=== PATIENT | female | born 1980 | race Caucasian/White ===

== ENCOUNTER 2018-01-10 09:58 | Day surgery (SDC) | payer MEDICAID ==
[2018-01-10] MEDS ORDERED: FENTAnyl 50 MCG/ML VIAL ×2 (12:48→13:57)
[2018-01-10] MEDS ORDERED: MIDAZOLAM 1 MG/ML 2 ML INJ (12:48)
[2018-01-10] MEDS ORDERED: OXYTOCIN 10 UNIT INJ (13:03)
[2018-01-10] MEDS ORDERED: PROPOFOL 20 ML (13:22)
[2018-01-10] MEDS ORDERED: ONDANSETRON 4 MG INJ (13:22)
[2018-01-10] MEDS ORDERED: CEFAZOLIN 1 GM INJ (13:22)
[2018-01-10] MEDS ORDERED: LIDOCAINE 2% (SDV) 5 ML INJ (13:22)
[2018-01-10] MEDS: FENTAnyl 50 MCG/ML VIAL IV (14:02)
[2018-01-10] MEDS: KETOROLAC 30 MG INJ IV (14:11)
[2018-01-10] MEDS: IBUPROFEN 600 MG TAB PO (15:53)
== END 2018-01-10 16:12 | disposition home or self-care (01) ==
LOC: SDS 09:58
DX: O03.1 Delayed or excessive hemorrhage following incomplete spontaneous abortion (principal); E78.5 Hyperlipidemia, unspecified; E11.9 Type 2 diabetes mellitus without complications; E66.01 Morbid (severe) obesity due to excess calories
CPT/HCPCS: 59812; 82962; 86850; 86900; 86901; 88305

== ENCOUNTER 2018-09-22 11:01 | Inpatient (IN) | payer MEDICAID ==
[2018-09-22] MEDS: ACCU-CHEK XX ×2 (13:30→20:39)
[2018-09-22 15:52] LABS: ADD MAN DIFF? NO
[2018-09-22 15:54] LABS: BASOPHILS % 0.4 % (0.0-2.0); EOSINOPHILS % 0.4 % (0.0-7.0); HEMOGLOBIN 9.9 g/dl (12.0-16.0); LYMPHOCYTES # 1.8 10^3/ul (0.8-2.9); LYMPHOCYTES % 21.3 % (15.0-51.0); MEAN CORPUSCULAR HEMOGLOBIN 24.1 pg (29.0-33.0); MEAN CORPUSCULAR HGB CONC 31.9 g/dl (32.0-37.0); MEAN CORPUSCULAR VOLUME 75.4 fl (82.0-101.0); MEAN PLATELET VOLUME 10.2 fl (7.4-10.4); MONOCYTE # 0.5 10^3/ul (0.3-0.9); MONOCYTES % 5.4 % (0.0-11.0); NEUTROPHIL # 6.1 10^3/ul (1.6-7.5); NEUTROPHILS % 72.1 % (39.0-77.0); PLATELET COUNT 352 10^3/UL (140-415); RED BLOOD COUNT 4.11 10^6/ul (4.20-5.40)
[2018-09-22 15:54] LABS: WHITE BLOOD COUNT 8.5 10^3/ul (4.8-10.8)
[2018-09-22 16:12] LABS: ALANINE AMINOTRANSFERASE 23 IU/L (13-69); ALBUMIN 3.6 g/dl (3.3-4.9); ALBUMIN/GLOBULIN RATIO 1.12; ALKALINE PHOSPHATASE 142 IU/L (42-121); ANION GAP 13 (5-13); ASPARTATE AMINO TRANSFERASE 33 IU/L (15-46); BILIRUBIN,INDIRECT 0.6 mg/dl (0-1.1); BILIRUBIN,TOTAL 0.6 mg/dl (0.2-1.3); BLOOD UREA NITROGEN 9 mg/dl (7-20); CALCIUM 9.2 mg/dl (8.4-10.2); CARBON DIOXIDE 21 mmol/L (21-31); CHLORIDE 101 mmol/L (97-110); CREATININE 0.61 mg/dl (0.44-1.00); Estimated GFR > 60 mL/min (>60); GLUCOSE 159 mg/dl (70-220); SODIUM 135 mmol/L (135-144); TOTAL PROTEIN 6.8 g/dl (6.1-8.1)
[2018-09-22 16:14] LABS: HEMOGLOBIN A1C 6.2 % (0-5.9)
[2018-09-22 16:39] LABS: ADD UMIC NO; UR ASCORBIC ACID NEGATIVE (NEGATIVE); UR BILIRUBIN (Dip) NEGATIVE (NEGATIVE); UR BLOOD (Dip) NEGATIVE (NEGATIVE); UR CLARITY CLEAR (CLEAR); UR COLOR YELLOW (YELLOW); UR GLUCOSE (Dip) 1+ mg/dL (NEGATIVE); UR KETONES (Dip) 2+ mg/dL (NEGATIVE); UR LEUKOCYTE ESTERASE (Dip) NEGATIVE Leu/ul (NEGATIVE); UR NITRITE (Dip) NEGATIVE (NEGATIVE); UR SPECIFIC GRAVITY (Dip) 1.019 (1.003-1.030); UR TOTAL PROTEIN (Dip) NEGATIVE (NEGATIVE); UR UROBILINOGEN (Dip) 1+ mg/dL (NEGATIVE)
[2018-09-23] MEDS: ACCU-CHEK XX ×3 (10:48→10:55)
[2018-09-23] MEDS: PRENATAL VITAMIN PO (10:49)
== END 2018-09-23 18:45 | disposition home or self-care (01) | DRG 833 ==
LOC: OBT 11:01 → L-D 11:06 → OBT 13:03 → L-D 13:03 → PP1 15:05
PROVIDERS: Obstetrics & Gynecology
PROC: 4A1HXCZ Monitoring of Products of Conception, Cardiac Rate, External Approach (ICD-10-PCS; principal; 2018-09-22)
DX: O24.410 Gestational diabetes mellitus in pregnancy, diet controlled (principal); Z3A.34 34 weeks gestation of pregnancy
CPT/HCPCS: 76815; 76818; 80053; 81003; 82962; 83036; 85025; 93005

== ENCOUNTER 2018-10-05 04:10 | Inpatient (IN) | payer MEDICAID ==
[2018-10-05] MEDS ORDERED: BUTORPHANOL 1 MG INJ IV (06:00)
[2018-10-05] MEDS ORDERED: CARBOPROST 250 MCG INJ IM (06:00)
[2018-10-05] MEDS ORDERED: OXYTOCIN 30 UNITS/LR 500 ML IV ×2 (06:00)
[2018-10-05] MEDS ORDERED: MISOPROSTOL 200 MCG TAB PR (06:00)
[2018-10-05] MEDS ORDERED: LIDOCAINE 1% (MPF) 30 ML INJ INJ (06:00)
[2018-10-05] MEDS ORDERED: METHYLERGONOVINE 0.2 MG INJ IM (06:00)
[2018-10-05] MEDS: LACTATED RINGER'S 1,000 ML IV ×4 (07:00→21:41)
[2018-10-05] MEDS: AMPICILLIN 2 GM/NS (PMX) 100 ML IV (07:27)
[2018-10-05 07:48] LABS: ADD MAN DIFF? NO
[2018-10-05 07:51] LABS: WHITE BLOOD COUNT 8.9 10^3/ul (4.8-10.8)
[2018-10-05 07:51] LABS: BASOPHILS % 0.2 % (0.0-2.0); EOSINOPHILS % 0.3 % (0.0-7.0); HEMATOCRIT 33.3 % (37.0-47.0); HEMOGLOBIN 10.4 g/dl (12.0-16.0); LYMPHOCYTES # 1.8 10^3/ul (0.8-2.9); LYMPHOCYTES % 20.3 % (15.0-51.0); MEAN CORPUSCULAR HEMOGLOBIN 23.9 pg (29.0-33.0); MEAN CORPUSCULAR HGB CONC 31.2 g/dl (32.0-37.0); MEAN CORPUSCULAR VOLUME 76.6 fl (82.0-101.0); MEAN PLATELET VOLUME 10.7 fl (7.4-10.4); MONOCYTE # 0.5 10^3/ul (0.3-0.9); MONOCYTES % 5.6 % (0.0-11.0); NEUTROPHIL # 6.5 10^3/ul (1.6-7.5); NEUTROPHILS % 73.3 % (39.0-77.0); PLATELET COUNT 360 10^3/UL (140-415); RED BLOOD COUNT 4.35 10^6/ul (4.20-5.40); RED CELL DISTRIBUTION WIDTH 15.1 % (11.5-14.5)
[2018-10-05 08:11] LABS: INR 0.93; PARTIAL THROMBOPLASTIN TIME 29.7 Sec (23.0-35.0); PROTIME 12.6 Sec (11.9-14.9)
[2018-10-05 08:20] LABS: GLUCOSE 87 mg/dl (70-220)
[2018-10-05 08:49] LABS: HEPATITIS B SURFACE ANTIGEN NEGATIVE (NEGATIVE)
[2018-10-05 08:59] LABS: HIV 1&2 ANTIBODY NEGATIVE (NEGATIVE)
[2018-10-05 09:20] LABS: ALANINE AMINOTRANSFERASE 61 IU/L (13-69); ALBUMIN 3.9 g/dl (3.3-4.9); ALBUMIN/GLOBULIN RATIO 1.08; ALKALINE PHOSPHATASE 194 IU/L (42-121); ANION GAP 11 (5-13); ASPARTATE AMINO TRANSFERASE 57 IU/L (15-46); BILIRUBIN,INDIRECT 0.5 mg/dl (0-1.1); BILIRUBIN,TOTAL 0.5 mg/dl (0.2-1.3); BLOOD UREA NITROGEN 7 mg/dl (7-20); CALCIUM 9.5 mg/dl (8.4-10.2); CARBON DIOXIDE 20 mmol/L (21-31); CHLORIDE 107 mmol/L (97-110); Estimated GFR > 60 mL/min (>60); GLUCOSE 91 mg/dl (70-220); POTASSIUM 4.1 mmol/L (3.5-5.1); SODIUM 138 mmol/L (135-144); TOTAL PROTEIN 7.5 g/dl (6.1-8.1); URIC ACID 5.1 mg/dl (3.1-7.9)
[2018-10-05 10:01] LABS: ADD UMIC NO; UR ASCORBIC ACID NEGATIVE (NEGATIVE); UR BILIRUBIN (Dip) NEGATIVE (NEGATIVE); UR BLOOD (Dip) NEGATIVE (NEGATIVE); UR CLARITY CLEAR (CLEAR); UR COLOR YELLOW (YELLOW); UR GLUCOSE (Dip) NEGATIVE (NEGATIVE); UR KETONES (Dip) TRACE mg/dL (NEGATIVE); UR LEUKOCYTE ESTERASE (Dip) NEGATIVE Leu/ul (NEGATIVE); UR NITRITE (Dip) NEGATIVE (NEGATIVE); UR SPECIFIC GRAVITY (Dip) 1.017 (1.003-1.030); UR TOTAL PROTEIN (Dip) NEGATIVE (NEGATIVE); UR UROBILINOGEN (Dip) NEGATIVE (NEGATIVE)
[2018-10-05] MEDS: DEXTROSE 5%-LR 1,000 ML IV (10:36)
[2018-10-05] MEDS: OXYTOCIN 30 UNITS/LR 500 ML IV ×2 (10:36→22:16)
[2018-10-05] MEDS: AMPICILLIN 1 GM/NS (PMX) 50 ML IV ×4 (12:10→22:00)
[2018-10-05] MEDS: BUTORPHANOL 2 MG INJ IV (12:33)
[2018-10-05] MEDS ORDERED: KETOROLAC 30 MG INJ IV (17:00)
[2018-10-05] MEDS ORDERED: HYDROmorphONE 0.5 MG/0.5 ML SYG IV ×2 (17:00)
[2018-10-05] MEDS ORDERED: ONDANSETRON 4 MG INJ IV (17:00)
[2018-10-05] MEDS ORDERED: DIPHENHYDRAMINE 50 MG INJ IV (17:00)
[2018-10-05] MEDS ORDERED: FENTAnyl 2MCG/ML-ROPIV 0.2% 100 ML BAG EPI (17:00)
[2018-10-05] MEDS ORDERED: NALOXONE (0.4 MG/ML) INJ IV (17:00)
[2018-10-05] MEDS ORDERED: ZOLPIDEM 5 MG TAB PO (17:00)
[2018-10-05 20:21] LABS: AMPHETAMINE/METHAMPHETAMINE Negative (NEGATIVE); BENZODIAZEPINES Negative (NEGATIVE); CANNABINOIDS Negative (NEGATIVE); COCAINE Negative (NEGATIVE); OPIATES Negative (NEGATIVE)
[2018-10-05 20:27] LABS: BARBITURATES Negative (NEGATIVE)
[2018-10-05] MEDS: IBUPROFEN 600 MG TAB PO (21:57)
[2018-10-05 23:24] LABS: RAPID PLASMA REAGIN NONREACTIVE (NR)
[2018-10-06] MEDS ORDERED: METHYLERGONOVINE 0.2 MG INJ IM (00:30)
[2018-10-06] MEDS ORDERED: MISOPROSTOL 200 MCG TAB PR (00:30)
[2018-10-06] MEDS ORDERED: ZOLPIDEM 5 MG TAB PO (00:30)
[2018-10-06] MEDS ORDERED: OXYTOCIN 30 UNITS/LR 500 ML IV (00:30)
[2018-10-06] MEDS ORDERED: CARBOPROST 250 MCG INJ IM (00:30)
[2018-10-06] MEDS ORDERED: OXYCODONE/ASPIRIN (4.88/325) TAB PO ×2 (00:30)
[2018-10-06] MEDS: BENZOCAINE 20% 56 ML SPRAY TOP (02:39)
[2018-10-06] MEDS: LANOLIN HPA 1 PKT TOP (02:39)
[2018-10-06] MEDS: WITCH HAZEL/GLYCERIN PAD PR (02:39)
[2018-10-06 07:36] LABS: ADD MAN DIFF? NO
[2018-10-06 07:49] LABS: WHITE BLOOD COUNT 14.5 10^3/ul (4.8-10.8)
[2018-10-06 07:49] LABS: BASOPHILS % 0.1 % (0.0-2.0); HEMATOCRIT 28.4 % (37.0-47.0); LYMPHOCYTES # 1.8 10^3/ul (0.8-2.9); LYMPHOCYTES % 12.5 % (15.0-51.0); MEAN CORPUSCULAR HEMOGLOBIN 24.1 pg (29.0-33.0); MEAN CORPUSCULAR HGB CONC 31.7 g/dl (32.0-37.0); MEAN CORPUSCULAR VOLUME 76.1 fl (82.0-101.0); MONOCYTE # 0.9 10^3/ul (0.3-0.9); MONOCYTES % 6.4 % (0.0-11.0); NEUTROPHIL # 11.7 10^3/ul (1.6-7.5); NEUTROPHILS % 80.6 % (39.0-77.0); PLATELET COUNT 313 10^3/UL (140-415); RED BLOOD COUNT 3.73 10^6/ul (4.20-5.40); RED CELL DISTRIBUTION WIDTH 15.3 % (11.5-14.5)
[2018-10-06 08:02] LABS: ALANINE AMINOTRANSFERASE 53 IU/L (13-69); ALBUMIN 2.8 g/dl (3.3-4.9); ALBUMIN/GLOBULIN RATIO 0.93; ALKALINE PHOSPHATASE 128 IU/L (42-121); ANION GAP 5 (5-13); ASPARTATE AMINO TRANSFERASE 42 IU/L (15-46); BILIRUBIN,INDIRECT 0.7 mg/dl (0-1.1); BILIRUBIN,TOTAL 0.7 mg/dl (0.2-1.3); BLOOD UREA NITROGEN 9 mg/dl (7-20); CALCIUM 9.3 mg/dl (8.4-10.2); CARBON DIOXIDE 22 mmol/L (21-31); CHLORIDE 109 mmol/L (97-110); CREATININE 0.74 mg/dl (0.44-1.00); Estimated GFR > 60 mL/min (>60); GLUCOSE 123 mg/dl (70-220); POTASSIUM 3.9 mmol/L (3.5-5.1); SODIUM 136 mmol/L (135-144); TOTAL PROTEIN 5.8 g/dl (6.1-8.1)
[2018-10-06] MEDS: SENNA/DOCUSATE NA (8.6MG/50MG) TAB PO ×2 (09:12→22:03)
[2018-10-06] MEDS: IBUPROFEN 600 MG TAB PO ×3 (11:47→23:14)
[2018-10-06 12:27] LABS: RUBELLA ANTIBODY - IGG 1.17 index; RUBELLA ANTIBODY - IGM <20.00 AU/mL
[2018-10-06] MEDS: INFLUENZA VIRUS VACCINE 0.5 ML (DISPENSING) IM* (15:11)
[2018-10-07] MEDS: IBUPROFEN 600 MG TAB PO ×3 (05:38→17:23)
[2018-10-07] MEDS: DIPHTH/TET/ACEL PERTUSS (ADULT) 0.5 ML VIAL IM* (09:30)
[2018-10-07] MEDS: SENNA/DOCUSATE NA (8.6MG/50MG) TAB PO ×2 (09:30→21:23)
== END 2018-10-07 22:00 | disposition home or self-care (01) | DRG 807 ==
LOC: OBT 04:10 → L-D 04:15 → OBT 05:38 → L-D 05:38 → PP1 23:31
PROVIDERS: Obstetrics & Gynecology
PROC: 10E0XZZ Delivery of Products of Conception, External Approach (ICD-10-PCS; principal; 2018-10-05)
PROC: 0HQ9XZZ Repair Perineum Skin, External Approach (ICD-10-PCS; 2018-10-05)
DX: O42.013 Preterm premature rupture of membranes, onset of labor within 24 hours of rupture, third trimester (principal); Z37.0 Single live birth; O24.420 Gestational diabetes mellitus in childbirth, diet controlled; O99.214 Obesity complicating childbirth; E66.01 Morbid (severe) obesity due to excess calories; O70.9 Perineal laceration during delivery, unspecified; O90.81 Anemia of the puerperium; D64.9 Anemia, unspecified; Z3A.36 36 weeks gestation of pregnancy; Z23 Encounter for immunization
CPT/HCPCS: 62319; 76815; 80053; 80307; 81003; 82947; 82962; 84560; 85025; 85610; 85730; 86592; 86703; 86762; 86850; 86900; 86901; 87340; 88307; 90686; 90715; 99464

== ENCOUNTER 2019-05-19 20:25 | Observation (INO) | payer BC, MEDICAID ==
[2019-05-19] MEDS: ONDANSETRON 4 MG INJ IV ×3 (20:49→22:33)
[2019-05-19] MEDS ORDERED: ONDANSETRON 4 MG INJ (20:51)
[2019-05-19] MEDS: HYDROmorphONE 1 MG/ML SYG IV (20:58)
[2019-05-19] MEDS: SOD CHLORIDE 0.9% 1,000 ML IV ×2 (20:58→23:12)
[2019-05-19 21:08] LABS: ADD MAN DIFF? NO
[2019-05-19 21:19] LABS: WHITE BLOOD COUNT 12.2 10^3/ul (4.8-10.8)
[2019-05-19 21:19] LABS: BASOPHIL # 0.1 10^3/ul (0.0-0.1); BASOPHILS % 0.6 % (0.0-2.0); EOSINOPHILS # 0.2 10^3/ul (0.0-0.5); EOSINOPHILS % 1.4 % (0.0-7.0); HEMATOCRIT 37.8 % (37.0-47.0); HEMOGLOBIN 12.2 g/dl (12.0-16.0); LYMPHOCYTES # 3.2 10^3/ul (0.8-2.9); LYMPHOCYTES % 25.8 % (15.0-51.0); MEAN CORPUSCULAR HEMOGLOBIN 26.3 pg (29.0-33.0); MEAN CORPUSCULAR HGB CONC 32.3 g/dl (32.0-37.0); MEAN CORPUSCULAR VOLUME 81.5 fl (82.0-101.0); MEAN PLATELET VOLUME 10.5 fl (7.4-10.4); MONOCYTE # 0.7 10^3/ul (0.3-0.9); MONOCYTES % 5.6 % (0.0-11.0); NEUTROPHIL # 8.1 10^3/ul (1.6-7.5); NEUTROPHILS % 66.3 % (39.0-77.0); PLATELET COUNT 297 10^3/UL (140-415); RED BLOOD COUNT 4.64 10^6/ul (4.20-5.40); RED CELL DISTRIBUTION WIDTH 14.4 % (11.5-14.5)
[2019-05-19 21:37] LABS: URINE PH (Dip) POC 5.5 (5.0-8.5)
[2019-05-19 21:37] LABS: URINE BLOOD (Dip) POC Negative (NEGATIVE); URINE GLUCOSE (Dip) POC Negative (NEGATIVE); URINE KETONES (Dip) POC Negative (NEGATIVE); URINE LEUKOCYTE EST (Dip) POC Trace (NEGATIVE); URINE NITRITE (Dip) POC Negative (NEGATIVE); URINE TOTAL PROTEIN POC Negative (NEGATIVE)
[2019-05-19 21:41] LABS: ALANINE AMINOTRANSFERASE 22 IU/L (13-69); ALBUMIN 4.5 g/dl (3.3-4.9); ALBUMIN/GLOBULIN RATIO 1.28; ALKALINE PHOSPHATASE 111 IU/L (42-121); ANION GAP 12 (5-13); ASPARTATE AMINO TRANSFERASE 20 IU/L (15-46); BILIRUBIN,INDIRECT 0.7 mg/dl (0-1.1); BILIRUBIN,TOTAL 0.7 mg/dl (0.2-1.3); BLOOD UREA NITROGEN 16 mg/dl (7-20); CALCIUM 9.4 mg/dl (8.4-10.2); CARBON DIOXIDE 23 mmol/L (21-31); CHLORIDE 104 mmol/L (97-110); CREATININE 0.81 mg/dl (0.44-1.00); Estimated GFR > 60 mL/min (>60); GLUCOSE 140 mg/dl (70-220); LIPASE 108 U/L (23-300); POTASSIUM 3.4 mmol/L (3.5-5.1); SODIUM 139 mmol/L (135-144)
[2019-05-19] MEDS: FENTAnyl 50 MCG/ML VIAL IV (21:49)
[2019-05-19 22:30] LABS: ADD UMIC YES; UR ASCORBIC ACID NEGATIVE (NEGATIVE); UR BACTERIA FEW /HPF (NONE SEEN); UR BILIRUBIN (Dip) NEGATIVE (NEGATIVE); UR BLOOD (Dip) NEGATIVE (NEGATIVE); UR CLARITY SLIGHTLY CLOUDY (CLEAR); UR COLOR YELLOW (YELLOW); UR GLUCOSE (Dip) NEGATIVE (NEGATIVE); UR KETONES (Dip) NEGATIVE (NEGATIVE); UR LEUKOCYTE ESTERASE (Dip) TRACE Leu/ul (NEGATIVE); UR MUCUS MANY /HPF (NONE SEEN); UR NITRITE (Dip) NEGATIVE (NEGATIVE); UR RBC 0 /HPF (0-5); UR SPECIFIC GRAVITY (Dip) 1.021 (1.003-1.030); UR SQUAMOUS EPITHELIAL CELL FEW /HPF (FEW); UR TOTAL PROTEIN (Dip) NEGATIVE (NEGATIVE); UR UROBILINOGEN (Dip) NEGATIVE (NEGATIVE); UR WBC 7 /HPF (0-5)
[2019-05-19] MEDS: KETAMINE HCL (50 MG/ML) 1ml syringe IV (22:35)
[2019-05-19] MEDS: FAMOTIDINE 20 MG TAB PO (23:13)
[2019-05-19] MEDS: METOCLOPRAMIDE 10 MG INJ IV ×2 (23:13→23:33)
[2019-05-20] MEDS ORDERED: METOCLOPRAMIDE 10 MG INJ IV (01:00)
[2019-05-20] MEDS ORDERED: DOCUSATE SODIUM 100 MG CAP PO (01:00)
[2019-05-20] MEDS ORDERED: ACETAMINOPHEN 325 MG TAB PO (01:00)
[2019-05-20] MEDS ORDERED: ONDANSETRON 4 MG INJ IV ×2 (01:00)
[2019-05-20] MEDS ORDERED: BISACODYL (EC) 5 MG TAB PO (01:00)
[2019-05-20] MEDS ORDERED: NACL 0.9% 3 ML SYG IV (01:00)
[2019-05-20 01:08] LABS: CHOL/HDL RATIO 4.5 RATIO; HDL CHOLESTEROL 43 mg/dl (34-82); LDL CHOLESTEROL,CALCULATED 100 mg/dl; TRIGLYCERIDES 265 mg/dl (0-149)
[2019-05-20 01:08] LABS: CHOLESTEROL 196 mg/dl (100-200)
[2019-05-20] MEDS: HYOSCYAMINE 0.125 MG SUBL TAB PO (01:47)
[2019-05-20] MEDS: CEFTRIAXONE 1 GM/50 ML (PMX) 50 ML IVPB (01:47)
[2019-05-20] MEDS: KETOROLAC 30 MG INJ IV ×3 (01:47→12:20)
[2019-05-20] MEDS: SOD CHLORIDE 0.9% 1,000 ML IV ×3 (02:00→19:35)
[2019-05-20] MEDS: POTASSIUM CHLORIDE 100 ML IVPB ×2 (04:27→06:33)
[2019-05-20] MEDS: PANTOPRAZOLE 40 MG INJ IV (06:31)
[2019-05-20 07:04] LABS: ADD MAN DIFF? NO
[2019-05-20 07:17] LABS: WHITE BLOOD COUNT 14.4 10^3/ul (4.8-10.8)
[2019-05-20 07:17] LABS: BASOPHILS % 0.2 % (0.0-2.0); HEMATOCRIT 34.5 % (37.0-47.0); HEMOGLOBIN 11.2 g/dl (12.0-16.0); LYMPHOCYTES % 13.6 % (15.0-51.0); MEAN CORPUSCULAR HEMOGLOBIN 26.4 pg (29.0-33.0); MEAN CORPUSCULAR HGB CONC 32.5 g/dl (32.0-37.0); MEAN CORPUSCULAR VOLUME 81.2 fl (82.0-101.0); MEAN PLATELET VOLUME 10.9 fl (7.4-10.4); MONOCYTE # 0.7 10^3/ul (0.3-0.9); MONOCYTES % 4.8 % (0.0-11.0); NEUTROPHIL # 11.7 10^3/ul (1.6-7.5); NEUTROPHILS % 81.1 % (39.0-77.0); PLATELET COUNT 279 10^3/UL (140-415); RED BLOOD COUNT 4.25 10^6/ul (4.20-5.40); RED CELL DISTRIBUTION WIDTH 14.4 % (11.5-14.5)
[2019-05-20 07:53] LABS: ALANINE AMINOTRANSFERASE 20 IU/L (13-69); ALBUMIN 3.8 g/dl (3.3-4.9); ALBUMIN/GLOBULIN RATIO 1.18; ALKALINE PHOSPHATASE 72 IU/L (42-121); ANION GAP 9 (5-13); ASPARTATE AMINO TRANSFERASE 19 IU/L (15-46); BILIRUBIN,INDIRECT 0.6 mg/dl (0-1.1); BILIRUBIN,TOTAL 0.6 mg/dl (0.2-1.3); BLOOD UREA NITROGEN 11 mg/dl (7-20); CALCIUM 8.9 mg/dl (8.4-10.2); CARBON DIOXIDE 24 mmol/L (21-31); CHLORIDE 105 mmol/L (97-110); CREATININE 0.73 mg/dl (0.44-1.00); Estimated GFR > 60 mL/min (>60); GLUCOSE 110 mg/dl (70-220); MAGNESIUM 1.8 mg/dl (1.7-2.5); POTASSIUM 4.1 mmol/L (3.5-5.1); SODIUM 138 mmol/L (135-144)
[2019-05-20 08:32] LABS: HEMOGLOBIN A1C 5.9 % (0-5.9)
[2019-05-20] MEDS: ACETAMINOPHEN 325 MG TAB PO ×2 (08:46→16:15)
[2019-05-20] MEDS: PANTOPRAZOLE (EC) 40 MG TAB PO (12:07)
[2019-05-20] MEDS: PRENATAL VITAMIN PO (12:07)
[2019-05-20] MEDS ORDERED: PHENAZOPYRIDINE 100 MG TAB PO (13:00)
[2019-05-21] MEDS: CEFTRIAXONE 1 GM/50 ML (PMX) 50 ML IVPB (01:24)
[2019-05-21] MEDS: SOD CHLORIDE 0.9% 1,000 ML IV ×4 (01:27→20:01)
[2019-05-21 05:01] LABS: ADD MAN DIFF? NO
[2019-05-21 05:12] LABS: WHITE BLOOD COUNT 8.1 10^3/ul (4.8-10.8)
[2019-05-21 05:12] LABS: BASOPHIL # 0.1 10^3/ul (0.0-0.1); BASOPHILS % 0.6 % (0.0-2.0); EOSINOPHILS # 0.2 10^3/ul (0.0-0.5); EOSINOPHILS % 2.2 % (0.0-7.0); HEMATOCRIT 34.7 % (37.0-47.0); HEMOGLOBIN 10.9 g/dl (12.0-16.0); LYMPHOCYTES # 2.7 10^3/ul (0.8-2.9); LYMPHOCYTES % 32.8 % (15.0-51.0); MEAN CORPUSCULAR HEMOGLOBIN 26.1 pg (29.0-33.0); MEAN CORPUSCULAR HGB CONC 31.4 g/dl (32.0-37.0); MEAN PLATELET VOLUME 10.7 fl (7.4-10.4); MONOCYTE # 0.6 10^3/ul (0.3-0.9); MONOCYTES % 7.5 % (0.0-11.0); NEUTROPHIL # 4.6 10^3/ul (1.6-7.5); NEUTROPHILS % 56.7 % (39.0-77.0); PLATELET COUNT 258 10^3/UL (140-415); RED BLOOD COUNT 4.18 10^6/ul (4.20-5.40); RED CELL DISTRIBUTION WIDTH 14.6 % (11.5-14.5)
[2019-05-21] MEDS: PANTOPRAZOLE (EC) 40 MG TAB PO (05:48)
[2019-05-21] MEDS: ACETAMINOPHEN 325 MG TAB PO ×2 (05:50→15:42)
[2019-05-21] MEDS: PRENATAL VITAMIN PO (08:09)
[2019-05-21] MEDS: DOCUSATE SODIUM 100 MG CAP PO (14:29)
[2019-05-21] MEDS: KETOROLAC 30 MG INJ IV (19:06)
[2019-05-22] MEDS: DOCUSATE SODIUM 100 MG CAP PO ×2 (00:50→12:18)
[2019-05-22] MEDS: CEFTRIAXONE 1 GM/50 ML (PMX) 50 ML IVPB (00:50)
[2019-05-22] MEDS: SOD CHLORIDE 0.9% 1,000 ML IV ×2 (01:49→09:16)
[2019-05-22] MEDS: ACETAMINOPHEN 325 MG TAB PO (05:54)
[2019-05-22] MEDS: PANTOPRAZOLE (EC) 40 MG TAB PO (05:54)
[2019-05-22 05:58] LABS: ADD MAN DIFF? NO
[2019-05-22 06:11] LABS: WHITE BLOOD COUNT 7.8 10^3/ul (4.8-10.8)
[2019-05-22 06:11] LABS: BASOPHIL # 0.1 10^3/ul (0.0-0.1); BASOPHILS % 0.9 % (0.0-2.0); EOSINOPHILS # 0.3 10^3/ul (0.0-0.5); EOSINOPHILS % 3.2 % (0.0-7.0); HEMATOCRIT 37.1 % (37.0-47.0); HEMOGLOBIN 11.8 g/dl (12.0-16.0); LYMPHOCYTES # 2.2 10^3/ul (0.8-2.9); LYMPHOCYTES % 27.8 % (15.0-51.0); MEAN CORPUSCULAR HGB CONC 31.8 g/dl (32.0-37.0); MEAN CORPUSCULAR VOLUME 81.9 fl (82.0-101.0); MEAN PLATELET VOLUME 10.7 fl (7.4-10.4); MONOCYTE # 0.5 10^3/ul (0.3-0.9); MONOCYTES % 6.5 % (0.0-11.0); NEUTROPHIL # 4.8 10^3/ul (1.6-7.5); NEUTROPHILS % 61.3 % (39.0-77.0); PLATELET COUNT 285 10^3/UL (140-415); RED BLOOD COUNT 4.53 10^6/ul (4.20-5.40); RED CELL DISTRIBUTION WIDTH 14.8 % (11.5-14.5)
[2019-05-22] MEDS: PRENATAL VITAMIN PO (08:22)
[2019-05-22] MEDS: POLYETHYLENE GLYCOL 17 GM PACKET PO (09:34)
[2019-05-22] MEDS ORDERED: PANTOPRAZOLE (EC) 40 MG TAB PO (18:00)
[2019-06-02 18:58] LABS: URINE BLOOD (Dip) POC Negative (NEGATIVE); URINE GLUCOSE (Dip) POC Negative (NEGATIVE); URINE KETONES (Dip) POC Negative (NEGATIVE); URINE LEUKOCYTE EST (Dip) POC Trace (NEGATIVE); URINE NITRITE (Dip) POC Negative (NEGATIVE); URINE TOTAL PROTEIN POC Negative (NEGATIVE)
[2019-06-02 18:58] LABS: URINE PH (Dip) POC 5.5 (5.0-8.5)
== END 2019-05-22 16:01 | disposition home or self-care (01) ==
LOC: PP2 05-20 02:06 → E/R 20:25 → TEL 05-20 00:33 → PP2 05-20 08:00
DX: K80.20 Calculus of gallbladder without cholecystitis without obstruction (principal); N39.0 Urinary tract infection, site not specified; E78.1 Pure hyperglyceridemia; E66.01 Morbid (severe) obesity due to excess calories; Z68.37 Body mass index [BMI] 37.0-37.9, adult; E11.9 Type 2 diabetes mellitus without complications
CPT/HCPCS: 36415; 74176; 74185; 76705; 78226; 80053; 80061; 81001; 81003; 81025; 83036; 83690; 83735; 84443; 84703; 85025; 87086; 96374; 96375; 96376; 99217; 99285-25; G0378